=== PATIENT | male | born 1995 | race Caucasian/White ===

== ENCOUNTER 2017-07-24 13:00 | Emergency (ER) | payer BC ==
--- NOTE | 2017-07-24 13:59 | UC ---
Eye Complaint HPI - HPI Summary HPI Summary: BILATERAL EYE REDNESS X 2 DAYS + WHITE DISCHARGE, NO EYE PAIN, NO PHOTOPHOBIA + BLURRY VISION ALSO C/O SORE THROAT, NASAL CONGESTION , COUGH NO FEVER NO CHILLS - History of Current Complaint Chief Complaint: UCRespiratory Stated Complaint: THROAT,COUGH Time Seen by Provider: 07/24/17 13:42 Hx Obtained From: Patient Onset/Duration: Gradual Onset, Lasting Days - 2 Timing: Constant Severity Initially: Moderate Severity Currently: Moderate Aggravating Factor(s): Nothing Alleviating Factor(s): Nothing Associated Signs And Symptoms: Positive: Drainage (Clear), Drainage (Purulent), Vision Impairment Bilateral. Negative: Photophobia, Fever, Swelling - Allergies/Home Medications Allergies/Adverse Reactions: Allergies Allergy/AdvReac Type Severity Reaction Status Date / Time No Known Allergies Allergy Verified 07/24/17 13:08 Home Medications: Home Medications Ibuprofen TAB* [Advil TAB*] 400 mg PO Q6H PRN 07/24/17 [History Confirmed ] PMH/Surg Hx/FS Hx/Imm Hx Previously Healthy: Yes - Surgical History Surgical History: None - Family History Known Family History: Negative: Diabetes - Social History Alcohol Use: Rare Substance Use Type: None Smoking Status (MU): Never Smoked Tobacco - Immunization History Most Recent Influenza Vaccination: NOT YET 2017 Review of Systems Constitutional: Negative Skin: Negative Eyes: Blurred Vision, Drainage, Eye Redness ENT: Sore Throat, Sinus Pain/Tenderness Respiratory: Cough Cardiovascular: Negative Gastrointestinal: Negative Is Patient Immunocompromised?: No All Other Systems Reviewed And Are Negative: Yes Physical Exam Triage Information Reviewed: Yes Appearance: Well-Appearing, No Pain Distress, Well-Nourished Vital Signs: Initial Vital Signs Temp 98.4 F 07/24/17 13:09 Pulse 64 07/24/17 13:09 Resp 18 07/24/17 13:09 BP 129/72 07/24/17 13:09 Pulse Ox 99 07/24/17 13:09 Vital Signs Reviewed: Yes Eyes: Positive: Conjunctiva Inflamed - BL, Discharge - BL ENT: Positive: Normal ENT inspection, Hearing grossly normal, Pharyngeal erythema, Nasal congestion, Nasal drainage, TMs normal Neck exam: Normal Neck: Positive: Supple, Nontender, No Lymphadenopathy Respiratory Exam: Normal Respiratory: Positive: Chest non-tender, Lungs clear, Normal breath sounds Cardiovascular: Positive: RRR, No Murmur, Pulses Normal Eye Complaint Course/Dx - Differential Dx/Diagnosis Provider Diagnoses: CONJUNCTIVITIS. URI Discharge - Discharge Plan Condition: Stable Disposition: HOME Prescriptions: Tobramycin 0.3% OPHTH.SERGE* 1 drop BOTH EYES Q4H #1 btl Patient Education Materials: Upper Respiratory Infection (ED), Conjunctivitis ( ED) Referrals: No Primary Care Phys,NOPCP [Primary Care Provider] - 7 Days
== END 2017-07-24 14:05 | disposition home or self-care (01) ==
LOC: UCCORT 13:00
DX: H10.33 Unspecified acute conjunctivitis, bilateral (principal); J06.9 Acute upper respiratory infection, unspecified
CPT/HCPCS: 99202; G0463

== ENCOUNTER 2017-12-16 15:41 | Emergency (ER) | payer BC ==
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
[2017-12-16] MEDS ORDERED: Cyclobenzaprine TAB* 10 MG PO ONE (19:13)
[2017-12-16] MEDS ORDERED: Naproxen TAB* 250 MG PO ONE (19:14)
== END 2017-12-16 19:49 | disposition home or self-care (01) ==
LOC: UCCORT 15:41
DX: G89.11 Acute pain due to trauma (principal); M54.2 Cervicalgia; M62.838 Other muscle spasm; V49.3XXA Car occupant (driver) (passenger) injured in unspecified nontraffic accident, initial encounter; Y93.89 Activity, other specified; Y92.410 Unspecified street and highway as the place of occurrence of the external cause
CPT/HCPCS: 72050; 99213; A9270-GY; G0463